=== PATIENT | female | born 1975 | race Caucasian/White ===

== ENCOUNTER 2023-12-10 09:01 | Day surgery (SDC) | payer BC ==
[2023-12-05 10:48] LABS: Urine Bacteria None Seen /hpf (None Seen)
[2023-12-05 11:06] LABS: Urine Blood Negative /uL (Negative); Urine Clarity Clear (Clear); Urine Color Light-Yellow (Yellow); Urine Protein, UAD Negative (Negative); Urine Specific Gravity 1.017 (1.001-1.035); Urine Urobilinogen Normal (Negative); Urine WBC <1 /hpf (0 - 5)
[2023-12-05 11:13] LABS: Basophils # (auto) 0 10 ^3/uL (0-0.2); Basophils % (auto) 0.4 % (0.0-2.0); Eosinophils # (auto) 0.1 10 ^3/uL (0-0.8); Eosinophils % (auto) 0.7 % (0.0-7.0); Hematocrit 39.7 % (36.0-46.0); Hemoglobin 13.6 g/dL (12.2-16.2); Lymphocytes # (auto) 1.9 10 ^3/uL (0.4-5.4); Lymphocytes % (auto) 25.1 % (10.0-50.0); Mean Corpuscular Hemoglobin 29.9 pg (28.0-32.0); Mean Corpuscular Hgb Conc. 34.4 g/dL (32.0-36.0); Mean Corpuscular Volume 86.7 fL (80.0-100.0); Monocytes # (auto) 0.5 10 ^3/uL (0-1.3); Monocytes % (auto) 6.3 % (0.0-12.0); Neutrophils # (auto) 5.1 10 ^3/uL (1.6-8.6); Neutrophils % (auto) 67.5 % (37.0-80.0); Nucleated Red Blood Cells % 0.1 %; Platelet Count (auto) 242 10^3/uL (140-450); Red Blood Cells 4.57 10^6/uL (4.0-5.20); Red Cell Distribution Width 13.7 % (11.8-14.3); White Blood Cell 7.6 10^3/uL (4.4-10.8)
[2023-12-05 11:24] LABS: Alanine Aminotransferase 22 U/L (7-40); Alkaline Phosphatase 72 U/L (46-116); Anion Gap 6 (5-15); BUN/Creatinine Ratio 12.5 (10.0-20.0); Blood Urea Nitrogen 9 mg/dL (9-23); Calcium 9.9 mg/dL (8.7-10.4); Carbon Dioxide 26 mmol/L (20-30); Chloride 106 mmol/L (98-107); Glucose 95 mg/dL (74-106); Potassium 4.1 mmol/L (3.5-5.1); Sodium 138 mmol/L (136-145)
[2023-12-05 11:25] LABS: Albumin 4.6 g/dL (3.2-4.8); Aspartate Aminotransferase 13 U/L (13-40); Bilirubin, Total 0.5 mg/dL (0.2-1.0); Total Protein 6.9 g/dL (5.7-8.2)
[2023-12-05 11:33] LABS: INR 0.99 (0.9-1.15); Partial Thromboplastin Time 24.2 SEC (24.5-34.5); Prothrombin Time 10.5 sec (9.3-11.8)
[~2023-12-10] VITALS: Ht 165.1 cm; Wt 73.9 kg
[~2023-12-10 09:01] MED LIST: FLUT50SP; METO-289 PO
[2023-12-10] MEDS: CELECOXIB 100 MG CAP PO ONE (09:15)
[2023-12-10] MEDS: GABAPENTIN 400 MG CAP PO ONE (09:15)
[2023-12-10] MEDS: ACETAMINOPHEN IV 1000 MG/100ML (10MG/ML) IV ONE (09:15)
[2023-12-10] MEDS ORDERED: ceFAZolin 2 GM/D5W100ml 100 ML IV ONE (09:17)
[2023-12-10] MEDS ORDERED: GABAPENTIN 400 MG CAP ONE (09:19)
[2023-12-10] MEDS ORDERED: CELECOXIB 100 MG CAP ONE (09:19)
[2023-12-10] MEDS ORDERED: ACETAMINOPHEN IV 100 ML IV ONE (09:19)
[2023-12-10] MEDS ORDERED: PROPOFOL 10 MG/ML 20 ML IV ONE (09:33)
[2023-12-10] MEDS ORDERED: LIDOCAINE 1% INJ PF 5ML AMP ONE (09:33)
[2023-12-10] MEDS ORDERED: GLYCOPYRROLATE 0.2 MG/ML 1ML VIAL ONE (09:33)
[2023-12-10] MEDS ORDERED: LIDOCAINE 2% (LOCAL ANESTH.) PF 5ml SDV ONE (09:33)
[2023-12-10] MEDS ORDERED: KETOROLAC TROMETH 30 MG/ML 1ML VIAL ONE (09:33)
[2023-12-10] MEDS ORDERED: DexAMETHasone SOD PHOS 10MG/1ML VIAL INJ ONE (09:33)
[2023-12-10] MEDS ORDERED: ONDANSETRON HCL 4 MG/2 ML VIAL ONE (09:33)
[2023-12-10] MEDS ORDERED: fentaNYL CITRATE 100 MCG/2 ML VL ONE (09:34)
[2023-12-10] MEDS ORDERED: KETAMINE 50mg/ML 1ml syringe ONE (09:34)
[2023-12-10] MEDS: BUPIVACAINE 0.5% INJ 50ML VIAL IJ ONE (11:20)
[2023-12-10 11:33] VITALS: TEMP 98.2
[2023-12-10] MEDS ORDERED: fentaNYL CITRATE 100 MCG/2 ML VL IV PRN (11:45)
[2023-12-10] MEDS ORDERED: ePHEDrine SULFATE 50 MG/ML AMP IV PRN (11:45)
[2023-12-10] MEDS ORDERED: NALOXONE HCL 0.4 MG/ML VIAL IV PRN (11:45)
[2023-12-10] MEDS ORDERED: oxyCODONE HCL 5MG TAB PO PRN (11:45)
[2023-12-10] MEDS ORDERED: hydrALAZINE HCL 20 MG/ML VL IV PRN (11:45)
[2023-12-10] MEDS ORDERED: FLUMAZENIL 0.1 MG/ML INJ 10ML MDV IV PRN (11:45)
[2023-12-10] MEDS ORDERED: HYDROmorphone HCL 2 MG/ML VL/or syr IV PRN (11:45)
[2023-12-10] MEDS ORDERED: ONDANSETRON HCL 4 MG/2 ML VIAL IV PRN (11:45)
[2023-12-10 12:18] VITALS: BP 128/85; PULSE 78; RESP 14; O2SAT 98
== END 2023-12-10 12:20 | disposition home or self-care (01) ==
LOC: SUR 09:01
PROVIDERS: ATTEND Orthopaedic Surgery Sports Medicine
DX: S83.242A Other tear of medial meniscus, current injury, left knee, initial encounter (principal); M94.262 Chondromalacia, left knee; E03.9 Hypothyroidism, unspecified; K21.9 Gastro-esophageal reflux disease without esophagitis; E66.3 Overweight; Z82.49 Family history of ischemic heart disease and other diseases of the circulatory system; Z83.3 Family history of diabetes mellitus; Z87.891 Personal history of nicotine dependence; Z98.890 Other specified postprocedural states; Z90.721 Acquired absence of ovaries, unilateral; Z88.8 Allergy status to other drugs, medicaments and biological substances; Z68.27 Body mass index [BMI] 27.0-27.9, adult; X58.XXXA Exposure to other specified factors, initial encounter; Y93.89 Activity, other specified; Y92.89 Other specified places as the place of occurrence of the external cause; Y99.8 Other external cause status
CPT/HCPCS: 29882; 36415; 80053; 81001; 84702; 85025; 85610; 85730; C1713; J1100; J1885; J2001; J2405; J2704; J3010; J3490; J0131